=== PATIENT | male | born 1935 | race Caucasian/White ===

== ENCOUNTER 2023-11-20 12:33 | Inpatient (IN) ==
[2023-11-20] MEDS: cefTRIAXone 2 GM in DEXTROSE 5% IN WATER 50 ML IV ONE (14:13)
[2023-11-20 14:19] LABS: Basophils # (Auto) 0.03 K/mcL (0.00-0.30); Basophils % (Auto) 0.2 % (0.0-2.0); Eosinophils # (Auto) 0.02 K/mcL (0.00-0.70); Eosinophils % (Auto) 0.1 % (0.0-7.0); Hemoglobin 13.2 g/dL (13.7-17.5); Lymphocytes # (Auto) 1.21 K/mcL (1.50-4.80); Lymphocytes % (Auto) 7.1 % (15.5-49.0); Mean Cell Volume 94.9 fL (80.0-100.0); Mean Corpuscular HGB Conc 32.2 g/dL (31.0-36.0); Mean Platelet Volume 9.4 fL (8.8-12.5); Monocytes # (Auto) 1.09 K/mcL (0.10-0.90); Monocytes % (Auto) 6.4 % (1.0-12.0); Neutrophils % (Auto) 85.7 % (38.0-78.0); Platelet Count 315 K/mcL (140-440); RBC 4.32 M/mcL (4.63-6.08); Red Cell Distribution Width 13.2 % (11.5-14.5)
[2023-11-20] MEDS ORDERED: POLYETHYLENE GLYCOL 3350 17 GM PACKET PO PRN (20:27)
[2023-11-20] MEDS ORDERED: MAGNESIUM SULFATE 2 GM/50 ML BAG IV PRN (20:27)
[2023-11-20] MEDS ORDERED: POTASSIUM CHLORIDE 20 MEQ TABLET PO PRN ×2 (20:27)
[2023-11-20] MEDS ORDERED: IPRATROPIUM/ALBUTEROL 3 ML AMPUL.NEB NEB PRN (20:27)
[2023-11-20] MEDS ORDERED: POTASSIUM CHLORIDE 40 MEQ in DEXTROSE 5% IN WATER 500 ML IV PRN (20:27)
[2023-11-20] MEDS ORDERED: ONDANSETRON 4 MG/2 ML VIAL IV PRN (20:27)
[2023-11-20] MEDS ORDERED: SENNOSIDES 1 TABLET PO PRN (20:27)
[2023-11-20] MEDS: cefTRIAXone 2 GM in DEXTROSE 5% IN WATER 50 ML IV SCH (21:02)
[2023-11-20] MEDS: DOCUSATE SODIUM 100 MG CAPSULE PO SCH (21:02)
[2023-11-20] MEDS: 0.9 % SODIUM CHLORIDE 10 ML SYRINGE IV SCH (21:03)
[2023-11-20] MEDS: AZITHROMYCIN 500 MG in DEXTROSE 5% IN WATER 250 ML IV SCH (23:34)
[2023-11-20] MEDS: TAMSULOSIN 0.4 MG CAPSULE PO SCH (23:34)
[2023-11-21 06:30] LABS: Basophils # (Auto) 0.03 K/mcL (0.00-0.30); Basophils % (Auto) 0.3 % (0.0-2.0); Eosinophils # (Auto) 0.34 K/mcL (0.00-0.70); Eosinophils % (Auto) 2.8 % (0.0-7.0); Hemoglobin 12.2 g/dL (13.7-17.5); Lymphocytes # (Auto) 0.98 K/mcL (1.50-4.80); Lymphocytes % (Auto) 8.2 % (15.5-49.0); Mean Cell Volume 91.8 fL (80.0-100.0); Mean Platelet Volume 9.4 fL (8.8-12.5); Monocytes # (Auto) 0.74 K/mcL (0.10-0.90); Monocytes % (Auto) 6.2 % (1.0-12.0); Neutrophils % (Auto) 82.2 % (38.0-78.0); Platelet Count 329 K/mcL (140-440); RBC 4.03 M/mcL (4.63-6.08); WBC 11.9 K/mcL (4.5-11.0)
[2023-11-21 06:54] LABS: ALT/SGPT 34 U/L (<40); AST/SGOT 60 U/L (<40); Albumin 3.2 gm/dL (3.2-5.2); Alkaline Phosphatase 57 U/L (39-117); Bilirubin,Direct 0.4 mg/dL (<0.3); Bilirubin,Total 0.7 mg/dL (0.1-1.0); Blood Urea Nitrogen 21 mg/dL (8-23); Calcium 8.5 mg/dL (8.6-10.4); Carbon Dioxide 23 mmol/L (22-30); Chloride 101 mmol/L (96-108); Globulin 3.2 gm/dL (2.2-3.7); Glomerular Filtration Rate 60; Glucose 110 mg/dL (70-105); Lactate Dehydrogenase 182 U/L (135-225); Phosphorous 2.7 mg/dL (2.5-4.5); Triglycerides 100 mg/dL (<150); Uric Acid 6.2 mg/dL (2.5-8.0)
[2023-11-21] MEDS: FENOFIBRATE 43 MG CAPSULE PO SCH (08:08)
[2023-11-21] MEDS: APIXABAN 5 MG TABLET PO SCH (08:08)
[2023-11-21] MEDS: cefTRIAXone 2 GM in DEXTROSE 5% IN WATER 50 ML IV SCH (08:55)
[2023-11-21] MEDS: ACETAMINOPHEN 325 MG TABLET PO PRN (15:27)
[2023-11-21] MEDS: SIMVASTATIN 10 MG TABLET PO SCH (20:43)
[2023-11-22 06:14] LABS: Basophils # (Auto) 0.03 K/mcL (0.00-0.30); Basophils % (Auto) 0.3 % (0.0-2.0); Eosinophils # (Auto) 0.56 K/mcL (0.00-0.70); Eosinophils % (Auto) 5.6 % (0.0-7.0); Hemoglobin 11.8 g/dL (13.7-17.5); Lymphocytes # (Auto) 1.22 K/mcL (1.50-4.80); Lymphocytes % (Auto) 12.1 % (15.5-49.0); Mean Cell Volume 92.8 fL (80.0-100.0); Mean Corpuscular HGB Conc 32.8 g/dL (31.0-36.0); Mean Platelet Volume 9.7 fL (8.8-12.5); Monocytes # (Auto) 0.93 K/mcL (0.10-0.90); Monocytes % (Auto) 9.2 % (1.0-12.0); Neutrophils % (Auto) 72.4 % (38.0-78.0); Platelet Count 338 K/mcL (140-440); RBC 3.88 M/mcL (4.63-6.08); WBC 10.1 K/mcL (4.5-11.0)
[2023-11-22 06:45] LABS: Blood Urea Nitrogen 21 mg/dL (8-23); Calcium 8.4 mg/dL (8.6-10.4); Carbon Dioxide 22 mmol/L (22-30); Chloride 102 mmol/L (96-108); Glomerular Filtration Rate 68; Glucose 115 mg/dL (70-105)
[2023-11-22] MEDS: POTASSIUM CHLORIDE 20 MEQ TABLET PO ONE (10:34)
[2023-11-22] MEDS: FUROSEMIDE 40 MG/4 ML VIAL IV SCH (10:35)
== END 2023-11-22 15:55 | disposition home or self-care (01) | DRG 871 ==
LOC: ED 12:33 → MEDSUR 20:10
PROVIDERS: ADMIT Internal Medicine; ATTEND Internal Medicine